=== PATIENT | female | born 1975 | race Caucasian/White ===

== ENCOUNTER 2023-05-06 09:48 | Emergency (ER) | payer MEDICARE, MEDICAID ==
[~2023-05-06] VITALS: Ht 165.1 cm; Wt 73.0 kg
[2023-05-06] MEDS ORDERED: AMOX/K CLAV875 M1 PO (10:32)
[2023-05-06 10:33] VITALS: BP 107/79
== END 2023-05-06 10:45 | disposition home or self-care (01) ==
LOC: ED 09:48
DX: H66.92 Otitis media, unspecified, left ear (principal)